=== PATIENT | female | born 1955 | race Caucasian/White ===

== ENCOUNTER → 2018-03-03 | Outpatient (CLI) | payer OTHER ==
[~2018-03-03] MED LIST: CALCAVITDA PO; CAPE500; ESTR.05PBW TOP; FISH1000 PO; LEVSOD100 PO; PROG100 PO
[2018-03-05 15:08] LABS: HPV 16 Negative (Negative); HPV 18 Negative (Negative); HPV OTHER HR TYPES Negative (Negative)
== END ==
LOC: LAB SHORT 18:21 → LAB 18:21
PROVIDERS: Obstetrics & Gynecology Gynecology
DX: Z12.4 Encounter for screening for malignant neoplasm of cervix (principal)
CPT/HCPCS: 87624; G0123